=== PATIENT | female | born 2005 | race Caucasian/White ===

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

== ENCOUNTER 2023-06-20 10:01 | Emergency (ER) | payer BC, SELFPAY ==
[2023-06-20 10:09] VITALS: BP 126/79; PULSE 78; TEMP 36.8; O2SAT 100; BMI 20.1
--- NOTE | 2023-06-20 10:09 | XRR_ITS ---
PROCEDURE INFORMATION: Exam: XR Chest Exam date and time: 06/20/2023 10:14 AM Age: 18 years old Clinical indication: Shortness of breath TECHNIQUE: Imaging protocol: Radiologic exam of the chest. Views: 1 view. COMPARISON: No relevant prior studies available. FINDINGS: Lungs: No pulmonary consolidation. Pleural spaces: No pleural effusion. No pneumothorax. Heart/Mediastinum: The cardiac silhouette is unremarkable. No gross evidence of pneumomediastinum. Bones/joints: No gross fracture. XR/XR chest 1V [id number] IMPRESSION: No acute cardiopulmonary abnormality identified.
[2023-06-20 10:13] VITALS: BP 126/79; PULSE 77; O2SAT 100
[2023-06-20] MEDS: dexamethasone 10 mg/mL INJ IM (10:13)
--- NOTE | 2023-06-20 10:16 | ED_ITS ---
HPI - Skin/Abscess/Foreign Bdy General: Chief complaint: Skin/Abscess/Foreign Body Stated complaint: SOB / Hives Time Seen by Provider: 06/20/23 10:07 History of Present Illness: Healthy 18-year-old female who presents to the emergency room with shortness of breath and chest tightness. She says yesterday she woke with hives and that has since improved some but today she awoke and felt very short of breath and like her chest was tight. Still with some pruritus. Lungs are clear on exam. No wheeze. No history of asthma. 99% on room air. Blood pressure is normal. Heart rate normal. No fevers. No cough. No abdominal pain. No nausea or vomiting. Review of Systems Narrative: Constitutional symptoms: Negative except as documented in HPI. Skin symptoms: Negative except as documented in HPI. Eye symptoms: Negative except as documented in HPI. ENMT symptoms: Negative except as documented in HPI. Respiratory symptoms: Negative except as documented in HPI. Cardiovascular symptoms: Negative except as documented in HPI. Gastrointestinal symptoms: Negative except as documented in HPI. Genitourinary symptoms: Negative except as documented in HPI. Musculoskeletal symptoms: Negative except as documented in HPI. Neurologic symptoms: Negative except as documented in HPI. Psychiatric symptoms: Negative except as documented in HPI. Endocrine symptoms: Negative except as documented in HPI. PFSH ED PFSH: Social History Smoking and tobacco/nicotine status: never used tobacco/nicotine Physical Exam Narrative: EXAM NARRATIVE: General: Alert, no acute distress. Skin: Warm, dry. Head: Normocephalic, atraumatic. Neck: Supple, trachea midline. Eye: Extraocular movements are intact. Ears, nose, mouth and throat: mucosa moist. Cardiovascular: Regular, Normal peripheral perfusion. Respiratory: Lungs are clear to auscultation, respirations are non-labored, breath sounds are equal, Symmetrical chest wall expansion. Gastrointestinal: Soft, Nontender, Non distended, Normal bowel sounds. Musculoskeletal: Normal ROM, no deformity. Neurological: Alert and oriented, No focal neurological deficit observed. Psychiatric: Cooperative, appropriate mood & affect. Course Vital Signs: Vital signs: Vital Signs Temperature 98.3 F 06/20/23 10:09 Pulse Rate 77 06/20/23 10:13 Blood Pressure 126/79 06/20/23 10:13 Pulse Oximetry 100 06/20/23 10:13 Oxygen Delivery Me thod Room Air 06/20/23 10:13 MDM - Skin/Abscess/Foreign Bdy Medicial Decision Making Medical decision making: Differential diagnosis including but not limited to and based on the above HPI, review of systems and physical exam: Seems the patient is having an allergic reaction or perhaps a viral syndrome. Obtaining chest x-ray and a viral panel. Giving Decadron IM. Orders placed to evaluate differential diagnosis based on the above differential, HPI and physical exam Lab Review: Laboratory results were reviewed and interpreted by myself the emergency room physician. Respiratory panel was pending at discharge. Chest x-ray: No acute process. No infiltrate. No pneumothorax. No cardiomegaly. This was reviewed and interpreted by myself the ER physician. I reviewed the patient's medical record. Reexamination: XR interpretation done by ED provider, pending radiology final review Other Data Assessment and plan: -IM Decadron in the emergency room. - Discharged home - Discussed plan with patient. Answered any questions. - Evaluation and treatment of this problem were appropriate in the emergency setting. Discharge Plan Discharge Patient Disposition: Home Clinical Impression: Allergic reaction Condition: Stable Prescriptions: New dexamethasone 6 mg tablet 6 mg PO DAILY 5 Days Qty: 5 0RF No Action zolmitriptan [Zomig] 5 mg tablet See Rx Instructions PO .COMPLEX Rx Instructions: take 1 tab at onset of headache; if no relief, may repeat 1 tab after at least 2 hrs; max = 2 tabs/24 hrs PO Discharge Orders: Discharge ED (Routine); Ordered 06/20/23 Ordered By: Khushbu Marino Discharge Diet: Advance as tolerated Discharge Activity: Increase activity as tolerated Patient Instructions: General Allergic Reaction (ED) Activity Restrictions/Additional Instructions: You have been screened and evaluated and felt safe for discharge. Health conditions do change or evolve sometimes and as such it is important that you follow up with your Primary Doctor to be re checked, 3-5 days is a general good time frame for follow up. You are always welcome to return to the ED for re assessment if your symptoms are worsening or you have new concerns Coding Level of Care Code ED Rep[employer] for Clark Drew
[2023-06-20 12:07] LABS: Adenovirus Not Detected (NOT DETECT); Chlamydia Pneumoniae Not Detected (NOT DETECT); Coronavirus 229E,HKU1,NL63,OC4 Not Detected (NOT DETECT); Human Metapneumovirus Not Detected (NOT DETECT); Human Rhinovirus/Enterovirus Not Detected (NOT DETECT); Influenza A Not Detected (NOT DETECT); Influenza A H1 Not Detected (NOT DETECT); Influenza A H1-2009 Not Detected (NOT DETECT); Influenza A H3 Not Detected (NOT DETECT); Influenza B Not Detected (NOT DETECT); Mycoplasma Pneumoniae Not Detected (NOT DETECT); Parainfluenza Virus Type 1 Not Detected (NOT DETECT); Parainfluenza Virus Type 2 Not Detected (NOT DETECT); Parainfluenza Virus Type 3 Not Detected (NOT DETECT); Parainfluenza Virus Type 4 Not Detected (NOT DETECT); Respiratory Syncytial Virus A Not Detected (NOT DETECT); Respiratory Syncytial Virus B Not Detected (NOT DETECT); SARS-COV-2 Not Detected (NOT DETECT)
== END 2023-06-20 10:49 | disposition home or self-care (01) ==
PROVIDERS: Emergency Provider Emergency Medicine
DX: T78.40XA Allergy, unspecified, initial encounter (principal); X58.XXXA Exposure to other specified factors, initial encounter
CPT/HCPCS: 71045; 87486; 87581; 87633; 96372; 99284; J1100

== ENCOUNTER 2023-06-20 15:36 | Emergency (ER) | payer BC, SELFPAY ==
[2023-06-20] VITALS (7 sets, daily range): BP systolic 114–124; BP diastolic 49–71; PULSE 81–96; RESP 14–17; TEMP 36.8; O2SAT 91–100; BMI 20.1
--- NOTE | 2023-06-20 16:41 | W.ED.SOB ---
HPI - SOB/Dyspnea General: Chief Complaint: Shortness of Breath/Dyspnea Stated Complaint: sob, chest pains Time Seen by Provider: 06/20/23 15:38 History of Present Illness: HPI Narrative: 18-year-old healthy female who presents to the emergency room for the second time today with shortness of breath. I had seen her earlier in the day. She had a normal chest x-ray and her vitals were good. No tachypnea. No hypoxemia. And her lungs were clear on exam. Sent her home with a prescription for Decadron and her viral studies are pending. Those have come back negative. Mom and a friend are with her and felt like she was not getting any better even after the Decadron so they brought her back to the emergency room. Review of Systems Narrative: Constitutional symptoms: Negative except as documented in HPI. Skin symptoms: Negative except as documented in HPI. Eye symptoms: Negative except as documented in HPI. ENMT symptoms: Negative except as documented in HPI. Respiratory symptoms: Negative except as documented in HPI. Cardiovascular symptoms: Negative except as documented in HPI. Gastrointestinal symptoms: Negative except as documented in HPI. Genitourinary symptoms: Negative except as documented in HPI. Musculoskeletal symptoms: Negative except as documented in HPI. Neurologic symptoms: Negative except as documented in HPI. Psychiatric symptoms: Negative except as documented in HPI. Endocrine symptoms: Negative except as documented in HPI. [facility] ED PFSH: Social History Smoking and tobacco/nicotine status: never used tobacco/nicotine Physical Exam Narrative: EXAM NARRATIVE: General: Alert, no acute distress. Skin: Warm, dry. Head: Normocephalic, atraumatic. Neck: Supple, trachea midline. Eye: Extraocular movements are intact. Ears, nose, mouth and throat: mucosa moist. Cardiovascular: Regular, Normal peripheral perfusion. Respiratory: Lungs are clear to auscultation, respirations are non-labored, breath sounds are equal, Symmetrical chest wall expansion. Gastrointestinal: Soft, Nontender, Non distended, Normal bowel sounds. Musculoskeletal: Normal ROM, no deformity. Neurological: Alert and oriented, No focal neurological deficit observed. Psychiatric: Cooperative, appropriate mood & affect. Course Vital Signs: Vital signs: Vital Signs Temperature 98.2 F 06/20/23 16:05 Pulse Rate 94 06/20/23 17:10 Respiratory Rate 16 06/20/23 16:30 Blood Pressure 118/67 06/20/23 17:10 Pulse Oximetry 100 06/20/23 17:10 Oxygen Delivery Me thod Room Air 06/20/23 16:30 MDM - SOB/Dyspnea Medical Decision Making We will check some basic lab work and will try an inhaler and see if that helps her symptoms. Breathing treatment does improve her symptoms somewhat so we will write a inhaler for for home. Unclear if this is anxiety versus may be some allergies Lab Data 06/20/23 17:20 06/20/23 17:20 Labs/Radiology: Laboratory Results WBC 10.94 10^3/uL (4.5-13.0) 06/20/23 17:20 RBC 4.75 10^6/uL (3.85-5.65) 06/20/23 17:20 Hgb 13.60 g/dL (12.4-14.8) 06/20/23 17:20 Hct 42.0 % (36-47) 06/20/23 17:20 MCV 88.4 fl (85-98) 06/20/23 17:20 MCH 28.6 pg (27-33) 06/20/23 17:20 MCHC 32.4 g/dL (30-55) 06/20/23 17:20 RDW 13.0 % (12.1-15.1) 06/20/23 17:20 Plt Count 268 10^3/cmm (157-399) 06/20/23 17:20 MPV 9.5 fL (7.4-10.4) 06/20/23 17:20 Neut % (Auto) 91.9 % 06/20/23 17:20 Lymph % (Auto) 6.9 % 06/20/23 17:20 [place] % (Auto) 0.7 % 06/20/23 17:20 Eos % (Auto) 0.0 % 06/20/23 17:20 Baso % (Auto) 0.1 % 06/20/23 17:20 Neut # (Auto) 10.05 10^3/uL (1.8-8.0) H 06/20/23 17:20 Lymph # (Auto) 0.8 10^3/uL (1.5-6.5) L 06/20/23 17:20 [place] # (Auto) 0.1 10^3/uL (0.2-0.9) L 06/20/23 17:20 Eos # (Auto) 0.0 10^3/uL (0.0-0.8) 06/20/23 17:20 Baso # (Auto) 0.0 10^3/uL (0.0-0.1) 06/20/23 17:20 Nucleated RBC % (auto) 0 % 06/20/23 17:20 Nucleated RBCs # 0.0 /100WBC 06/20/23 17:20 Sodium 136 mmol/L (136-145) 06/20/23 17:20 Potassium 3.9 mmol/L (3.5-5.1) 06/20/23 17:20 Chloride 103 mmol/L (98-107) 06/20/23 17:20 Carbon Dioxide 22 mmol/L (22-29) 06/20/23 17:20 Anion Gap 14.9 (5-19) 06/20/23 17:20 BUN 9 mg/dL (6-20) 06/20/23 17:20 Creatinine 0.7 mg/dL (0.5-0.9) 06/20/23 17:20 GFR Calculation 106.7 mL/min (90-130) 06/20/23 17:20 Glucose 289 mg/dL (65-115) H 06/20/23 17:20 Calculated Osmolality 291 mOsm/kg (285-295) 06/20/23 17:20 Calcium 9.9 mg/dL (8.5-10.5) 06/20/23 17:20 Total Bilirubin 1.7 mg/dL (0.15-1.2) H 06/20/23 17:20 AST 15 U/L (0-32) 06/20/23 17:20 ALT 8 U/L (0-33) 06/20/23 17:20 Alkaline Phosphatase 91 U/L (35-105) 06/20/23 17:20 Total Protein 8.4 g/dL (6.6-8.7) 06/20/23 17:20 Albumin 4.8 g/dL (3.5-5.2) 06/20/23 17:20 Globulin 3.6 g/dL (1.3-4.6) 06/20/23 17:20 No radiology studies performed this visit Other Data Assessment and plan: - Discharged home - Discussed plan with patient. Answered any questions. - Evaluation and treatment of this problem were appropriate in the emergency setting. Discharge Plan Discharge Patient Disposition: Home Clinical Impression: Allergies Condition: Stable Prescriptions: New albuterol sulfate 90 mcg/actuation HFA aerosol inhaler 2 inh inhalation Q4H PRN (Reason: shortness of breath or wheezing) Qty: 6.7 0RF Rx Instructions: Please provide patient with a spacer No Action zolmitriptan [Zomig] 5 mg tablet See Rx Instructions PO .COMPLEX Rx Instructions: take 1 tab at onset of headache; if no relief, may repeat 1 tab after at least 2 hrs; max = 2 tabs/24 hrs PO dexamethasone 6 mg tablet 6 mg PO DAILY 5 Days Qty: 5 0RF Benadryl 25 mg Capsule 25 mg PO TID PRN (Reason: ALLERGIES) Claritin 10 mg Tablet 10 mg PO DAILY PRN (Reason: ALLERGIES) Discharge Orders: Discharge ED (Routine); Ordered 06/20/23 Ordered By: Khushbu Marino Discharge Diet: Usual diet Discharge Activity: Resume usual activity Patient Instructions: How to Use a Metered-Dose Inhaler and a Spacer (ED) Coding Level of Care Code 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
[2023-06-20] MEDS: albuterol 2.5 mg/3 mL Neb INHALATION (17:05)
[2023-06-20 17:38] LABS: Basophils % 0.1 %; Lymphocytes # 0.8 10^3/uL (1.5-6.5); Lymphocytes % 6.9 %; Mean Corpuscular HGB Conc 32.4 g/dL (30-55); Mean Corpuscular Hemoglobin 28.6 pg (27-33); Mean Corpuscular Volume 88.4 fl (85-98); Mean Platelet Volume 9.5 fL (7.4-10.4); Monocytes # 0.1 10^3/uL (0.2-0.9); Monocytes % 0.7 %; Neutrophils # 10.05 10^3/uL (1.8-8.0); Neutrophils % 91.9 %; Nucleated Red Blood Cells % 0 %; Platelet Count 268 10^3/cmm (157-399); Red Blood Count 4.75 10^6/uL (3.85-5.65); White Blood Count 10.94 10^3/uL (4.5-13.0)
[2023-06-20 17:58] LABS: Alanine Aminotransferase 8 U/L (0-33); Albumin Level 4.8 g/dL (3.5-5.2); Alkaline Phosphatase 91 U/L (35-105); Anion Gap 14.9 (5-19); Aspartate Amino Transferase 15 U/L (0-32); Blood Urea Nitrogen 9 mg/dL (6-20); Calcium 9.9 mg/dL (8.5-10.5); Carbon Dioxide 22 mmol/L (22-29); Chloride 103 mmol/L (98-107); Creatinine Clr Calc Pharmacy 117.9063; Globulin 3.6 g/dL (1.3-4.6); Glomerular Filtration Rate 106.7 mL/min (90-130); Glucose 289 mg/dL (65-115); Osmolality Calculated 291 mOsm/kg (285-295); Potassium 3.9 mmol/L (3.5-5.1); Sodium 136 mmol/L (136-145); Total Bilirubin 1.7 mg/dL (0.15-1.2); Total Protein 8.4 g/dL (6.6-8.7)
== END 2023-06-20 18:16 | disposition home or self-care (01) ==
PROVIDERS: Emergency Provider Emergency Medicine
DX: T78.40XA Allergy, unspecified, initial encounter (principal); X58.XXXA Exposure to other specified factors, initial encounter
CPT/HCPCS: 36415; 80053; 85025; 94640; 99283; J7613